=== PATIENT | male | born 1945 | race Caucasian/White ===

== ENCOUNTER 2018-08-06 05:30 | Inpatient (IN) ==
[2018-08-06] MEDS ORDERED: ROCEPHIN IM ONE (06:06)
[2018-08-06] MEDS ORDERED: DUONEB (A & A) INH STA (06:06)
[2018-08-06] MEDS ORDERED: NS 1,000 ML IV ONE (06:06)
[2018-08-06] MEDS ORDERED: XYLOCAINE-MPF 1% INJ ONE (06:06)
[2018-08-06] MEDS ORDERED: ZITHROMAX 500 MG/NS 500 MG/250 ML IVPB IV ONE (06:09)
[2018-08-06] MEDS ORDERED: ROCEPHIN 1 GM in NS 50 ML IV ONE (06:09)
--- NOTE | 2018-08-06 06:10 | PROVIDER DOCUMENTATION ---
HPI-Respiratory General - General Chief Complaint: Shortness of Breath Stated Complaint: sob Time Seen by Provider: 08/06/18 06:05 Allergies/Adverse Reactions: Patient Allergies Allergy/AdvReac Type Severity Reaction Status Date / Time No Known Allergies Allergy Verified 06/21/13 03:33 Home Medications: Home Medication List Medication Instructions Recorded Confirmed Last Taken Type Pantoprazole [Protonix] 40 mg PO DAILY@0700 #30 tablet 06/28/13 11/11/16 11/10/16 09:00 Rx Hydrocodone/APAP 10 mg/325 mg 1 - 2 each PO Q4H PRN PRN #0 tablet 11/12/16 Unknown Rx [Bascom-10] Lisinopril/Hydrochlorothiazide 1 ea PO DAILY 08/06/18 08/06/18 Unknown History [Lisinopril-Hctz 20-12.5 mg Tab] - History of Present Illness-Resp Nature of Presenting Problem: A 73 Y/O MALE PRESENTS WITH C/O SOB. PER THE PT HE STARTED HAVING COUGH A WEEK AGO AND SINCE IT HAS BEEN PROGRESSIVELY GOT WORSE. COUGH IS PRODUCTIVE OF GREEN PHLEGM. PT HAS BEEN HAVING FEVERS SINCE LAST THURSDAY. LAST NIGHT CAME HOME AND COULD NOT BREATHE, TRIED TO REST HOPING IT WOULD GET BETTER BUT DID NOT HELP. CALLED 911 THIS MORNING TO GET HELP. DENIES ANY CP OR N OR V OR D. SMOKES+. DEIES ANY SICK CONTACTS. HAS HX OF PNA ABOUT A YEAR AGO. Quality of Pain: reports: none Severity in ED: reports: moderate Onset/Duration: reports: last night Timing: reports: still present, getting worse Context: reports: recent URI. denies: recent foreign travel, recent chemotherapy Exposure: reports: unknown cause Cough Quality/Degree: reports: severe, productive cough, sputum Episode Frequency: rare episodes Current Respiratory Medication Therapy: Initiated none Modifying Factors: improves with: lying down, rest, sitting upright. worse with: coughing Associated Symptoms: reports: cough, fever/chills, flu-like symptoms, hyperventilating, shortness of breath, wheezing. denies: chest pain/soreness, earache, facial pain, headache, heart racing, lightheadedness, nasal congestion, nasal drainage, sinus pain, sore throat Similar Symptoms Previously?: Yes Recently seen or treated by another doctor?: No Review of Systems - Adult - REVIEW OF SYSTEMS - ADULT Constitutional: reports: see HPI, fever Eyes: reports: no symptoms reported Ears, Nose, Mouth & Throat: reports: see HPI Cardiovascular: reports: no symptoms reported Respiratory: reports: see HPI, cough Gastrointestinal: denies: no symptoms reported Genitourinary: denies: no symptoms reported Musculoskeletal: denies: no symptoms reported Integumentary: denies: no symptoms reported Neurological: denies: no symptoms reported Psychiatric: denies: no symptoms reported Endocrine: denies: no symptoms reported Hematologic/Lymphatic: denies: no symptoms reported Allergic/Immunologic: denies: no symptoms reported Past History - Adult - PAST MEDICAL HISTORY-ADULT Review of Records: reports: Old Records Reviewed, Nursing Assessment Review, Medications Reviewed, Social history reviewed & non-contributory. Major Childhood Illnesses: reports: denies history Cardiovascular: reports: HTN. denies: CHF Respiratory: reports: COPD, pneumonia Gastrointestinal: reports: denies history Obstetrical/Gynecological: reports: denies history Genitourinary: reports: denies history Musculoskeletal: reports: denies history Neurological: reports: denies history Endocrine/Immune: reports: denies history Other Conditions: reports: denies history - PRIOR SURGERIES/PROCEDURES Surgical/Procedure History: reports: reviewed, not pertinent - IMMUNIZATION STATUS Childhood Immunizations: UTD - FAMILY HISTORY Family History: CAD over 55 yo - SOCIAL HISTORY Smoking: cigarettes, greater than 1 pack/day Provider spent 3-5 mins advising pt. on dangers of tobacco.: Discussed manners to quit use, and f/u contacts for add'l counseling. Substance Use: none/never Alcohol Use Frequency: rarely Living Situation: family Physical Exam-General - PHYSICAL EXAM-ADULT Initial Vital Signs Reviewed: Yes - CONSTITUTIONAL General Appearance: moderate distress - EYES Eyes: PERRL/EOMI - HEAD, EARS, NOSE, MOUTH & THROAT HENMT: moist mucous membranes, normal ENT inspection, TMs normal - NECK Neck: supple - RESPIRATORY Respiratory: decreased breath sounds, accessory muscle use, rhonchi, wheezing - CARDIOVASCULAR Cardiovascular: regular rate, rhythm, no edema, no JVD, no murmur - GASTROINTESTINAL (ABDOMEN) Abdominal Exam: normal bowel sounds, non tender, soft - MUSCULOSKELETAL Back Exam: no CVA tenderness, no vertebral tenderness Extremity: no pedal edema - SKIN Integumentary: normal color, warm/dry - NEUROLOGIC Neurologic: grossly normal - PSYCHIATRIC Psych/Mental Status: oriented x 3, anxious - HEART Score HEART Score: History: Slightly Suspicious HEART Score: Age: > or = 65 Years HEART Score: Risk Factors for Atherosclerotic Disease: 1 or 2 Risk Factors HEART Score: Troponin: < or = Normal Limit Progress - PLAN OF CARE/RESULTS Progress/Plan/Lab Results: Vital Signs - 8 hr 08/06/18 05:35 08/06/18 05:36 08/06/18 05:40 Temperature 97.4 F L Pulse Rate 98 H 98 H Respiratory Rate 28 H 23 Blood Pressure 158/103 O2 Sat by Pulse Oximetry 96 97 97 08/06/18 05:50 08/06/18 06:00 08/06/18 06:03 Temperature Pulse Rate 95 H 96 H 98 H Respiratory Rate 23 26 H 25 H Blood Pressure 137/85 O2 Sat by Pulse Oximetry 98 98 99 08/06/18 06:10 08/06/18 06:20 08/06/18 06:33 Temperature Pulse Rate 101 H 102 H 104 H Respiratory Rate 32 H 28 H 31 H Blood Pressure 129/81 O2 Sat by Pulse Oximetry 98 95 96 Laboratory Results - last 24 hr 08/06/18 08/06/18 08/06/18 05:41 05:41 05:41 WBC Cancelled RBC Cancelled Hgb Cancelled Hct Cancelled MCV Cancelled MCH Cancelled MCHC Cancelled RDW Std Deviation Cancelled Plt Count Cancelled MPV Cancelled Immature Gran % (Auto) Cancelled Neut % (Auto) Cancelled Lymph % (Auto) Cancelled [place]range % (Auto) Cancelled Eos % (Auto) Cancelled Baso % (Auto) Cancelled Immature Gran # (Auto) Cancelled Neut # (Auto) Cancelled Lymph # (Auto) Cancelled [place] # (Auto) Cancelled Eos # (Auto) Cancelled Baso # (Auto) Cancelled Corrected WBC (Man) Cancelled Sodium 132 L Potassium 3.6 Chloride 87 L Carbon Dioxide 30 Anion Gap 15 BUN 13 Creatinine 0.7 Estimated GFR/1.73 m2 > 60 BUN/Creatinine Ratio 19 Glucose 144 H Calculated Osmolality 267 Calcium 9.5 Total Bilirubin 0.40 AST 21 ALT 13 Alkaline Phosphatase 124 H Creatine Kinase Creatine Kinase Index CK-MB (CK-2) Troponin T Emn-E-Aupqnzkbyeu Pept Total Protein 7.9 Albumin 3.5 Globulin 4.4 Albumin/Globulin Ratio 0.8 Plasma Lactate 1.5 08/06/18 08/06/18 08/06/18 05:41 05:41 05:41 WBC RBC Hgb Hct MCV MCH MCHC RDW Std Deviation Plt Count MPV Immature Gran % (Auto) Neut % (Auto) Lymph % (Auto) [place] % (Auto) Eos % (Auto) Baso % (Auto) Immature Gran # (Auto) Neut # (Auto) Lymph # (Auto) [place] # (Auto) Eos # (Auto) Baso # (Auto) Corrected WBC (Man) Sodium Potassium Chloride Carbon Dioxide Anion Gap BUN Creatinine Estimated GFR/1.73 m2 BUN/Creatinine Ratio Glucose Calculated Osmolality Calcium Total Bilirubin AST ALT Alkaline Phosphatase Creatine Kinase 236 H Creatine Kinase Index 5.1 H CK-MB (CK-2) 12.05 H Troponin T 0.015 Iqu-S-Kfyafcopaoj Pept 2963 H Total Protein Albumin Globulin Albumin/Globulin Ratio Plasma Lactate 08/06/18 08:30 WBC 20.95 H RBC 4.09 L Hgb 13.4 L Hct 40.0 L MCV 97.8 MCH 32.8 H MCHC 33.5 RDW Std Deviation 12.4 Plt Count 438 H MPV 8.4 Immature Gran % (Auto) 1.8 H Neut % (Auto) 81.4 H Lymph % (Auto) 4.4 L [place] % (Auto) 12.1 H Eos % (Auto) 0.0 Baso % (Auto) 0.3 Immature Gran # (Auto) 0.38 H Neut # (Auto) 17.03 H Lymph # (Auto) 0.93 L [place] # (Auto) 2.54 H Eos # (Auto) 0.01 Baso # (Auto) 0.06 Corrected WBC (Man) Sodium Potassium Chloride Carbon Dioxide Anion Gap BUN Creatinine Estimated GFR/1.73 m2 BUN/Creatinine Ratio Glucose Calculated Osmolality Calcium Total Bilirubin AST ALT Alkaline Phosphatase Creatine Kinase Creatine Kinase Index CK-MB (CK-2) Troponin T Mng-Z-Ffmuppvrxqi Pept Total Protein Albumin Globulin Albumin/Globulin Ratio Plasma Lactate Orders Category Date Time Status Saline Loc NOW Care 08/06/18 06:06 Active CHEST-PORTABLE [RAD] Stat Exams 08/06/18 06:06 Completed BLOOD CULTURE [BLDCUL] Stat Lab 08/06/18 05:46 Received CBC WITH DIFF [HEME] Stat Lab 08/06/18 08:30 Completed CK PROFILE [SP CHEM] Stat Lab 08/06/18 05:41 Completed COMPREHENSIVE METABOLIC PANEL [CHEM] Stat Lab 08/06/18 05:41 Completed INFLUENZA SCREEN A/B Stat Lab 08/06/18 08:58 Uncollected LACTATE, PLASMA [CHEM] Lab 08/06/18 05:41 Uncollected LACTATE, PLASMA [CHEM] Lab 08/06/18 08:30 Received LACTATE, PLASMA [CHEM] Lab 08/06/18 11:41 Uncollected LACTATE, PLASMA [CHEM] Stat Lab 08/06/18 05:41 Completed PRO B-NATRIURETIC PEPTIDE Stat Lab 08/06/18 05:41 Completed SPUTUM CULTURE WITH GRAM STAIN [RM] Routine Lab 08/06/18 05:33 Received TROPONIN T Stat Lab 08/06/18 05:41 Completed 0.9% Sodium Chloride Inj [Ns] 1,000 ml Med 08/06/18 06:06 Discontinued IV 999 mls/hr Albuterol 2.5MG/Ipratrop 0.5MG [Duoneb (A & A)] Med 08/06/18 09:00 Once 3 ml INH NOW ONE Albuterol 2.5MG/Ipratrop 0.5MG [Duoneb (A & A)] Med 08/06/18 06:06 Discontinued 3 ml INH NOW STA Azithromycin 500 mg/Ns [Zithromax 500 mg/Ns] Med 08/06/18 06:09 Discontinued 500 mg in 250 ml IV NOW CefTRIAXONE [Rocephin] Med 08/06/18 06:06 Discontinued 1 gm IM NOW ONE CefTRIAXONE [Rocephin] 1 gm Med 08/06/18 06:09 Discontinued 0.9% Sodium Chloride Inj [Ns] 50 ml IV NOW Hydrocodone/APAP 5 mg/325 mg [Bascom-5] Med 08/06/18 09:00 Once 2 each PO NOW ONE Lidocaine 1% Pf [Xylocaine-Mpf 1%] Med 08/06/18 06:06 Discontinued 5 ml INJ NOW ONE Methylprednisolone Sod Succ [Solu-Medrol] Med 08/06/18 09:00 Once 125 mg IV NOW ONE Aerosol Treatments Routine Oth 08/06/18 06:07 Completed Aerosol Treatments Routine Oth 08/06/18 09:00 Ordered Aerosol Treatments Stat Oth 08/06/18 06:07 Completed Aerosol Treatments Stat Oth 08/06/18 09:00 Ordered Pulse Oximetry Stat Oth 08/06/18 06:06 Completed EKG [EKG] Stat Ther 08/06/18 06:09 Ordered Result Diagrams: 08/06/18 08:30 08/06/18 05:41 - REASSESSMENT Reassessment #1 Time Reassessed: 09:01 Status: improving (Seen and examined by me. Case discussed with Dr. May at shift change. Patient meets criteria for sepsis. Has RUL PNE and also appears to have CHF by pro-BNP values with no prior diagnosis of CHF. Have give n Duonebs, solumedrol, rocephin/zithromax and lasix/asa. Patient requested Bascom for chronic pain) - XRAY 1 XRAY Study: Chest Impression: Abnormal ( CHEST-PORTABLE - 08/06/2018 INDICATION: cough COMPARISON: 02/04/2016 FINDINGS: There is a focal infiltrate or opacity in the right upper lobe. Heart size is normal. No pneumothorax or pleural effusion. IMPRESSION: Questionable infiltrate or opacity in the right upper lobe. Recommend treatment and a follow-up chest x-ray in one-2 weeks. Electronically signed by Wilmar Santana 08/06/2018 6:35 AM) - CONSULTS/PCP/HOSPITALIST Notification #1 *Consult/PCP/Hospitalist*: Mackenzie Time Discussed: 09:04 Consult Disposition: Will see in ED, Admit - CHANGE OF SHIFT REPORT (ED Provider) 1 Report Given and Care Transferred to:: DR SOW Time of Transfer: 07:00 Items Pending: Labs, Physician Consult/Arrival Departure - Departure Date of Disposition Decision: 08/06/18 Time of Disposition Decision: 09:04 DIAGNOSIS: COPD with exacerbation, Tobacco use disorder, Opioid dependence in controlled environment, Sepsis without acute organ dysfunction Right upper lobe pneumonia Qualifiers: Pneumonia type: due to unspecified organism Qualified Code(s): J18.1 - Lobar pneumonia, unspecified organism Congestive heart failure (CHF) Qualifiers: Heart failure type: unspecified Heart failure chronicity: acute on chronic Qualified Code(s): I50.9 - Heart failure, unspecified Disposition: ADMITTED INPATIENT 09 Certified Medical Emergency: Emergent Condition: Fair Referrals and Follow-Ups: Thomas Willis MD [Primary Care Provider] - - Critical Care Note This patient required my direct & personal management of CC.: Yes Total Time (mins): 40 Critical Care Statement: This patient required my direct personal management to treat or rule out processes, the absence of which, could potentiallly result in sudden, clinically significant life or limb threatening deterioration. Attestation - Physician/ TODD Attestation Patient care was provided by Advanced Practice Provider:: No The physician spent face to face time with patient:: Yes Advanced Practice Provider documentation review:: Supervising physician onsite and consulted in the evaluation and care of this patient. The physician did have a face to face encounter with the patient.
--- NOTE | 2018-08-06 06:38 | Diag Imaging Result Doc PS360 ---
CHEST-PORTABLE - 08/06/2018 INDICATION: cough COMPARISON: 02/04/2016 FINDINGS: There is a focal infiltrate or opacity in the right upper lobe. Heart size is normal. No pneumothorax or pleural effusion. IMPRESSION: Questionable infiltrate or opacity in the right upper lobe. Recommend treatment and a follow-up chest x-ray in one-2 weeks. Electronically signed by Wilmar Santana 08/06/2018 6:35 AM
[2018-08-06 07:46] LABS: ESTIMATED GFR > 60
[2018-08-06 07:48] LABS: AGAP 15; ALB/GLOB RATIO 0.8; ALBUMIN 3.5 g/dL (3.5-5.0); ALKALINE PHOSPHATASE 124 U/L (32-122); BUN 13 mg/dL (8-22); CALCIUM 9.5 mg/dL (8.8-10.2); CHLORIDE 87 mmol/L (98-107); COSMO 267; CREATININE 0.7 mg/dL (0.7-1.2); GLUCOSE 144 mg/dL (70-104); GOT 21 U/L (10-34); GPT 13 U/L (10-44); POTASSIUM 3.6 mmol/L (3.5-5.1); SODIUM 132 mmol/L (136-145); TCO2 30 mmol/L (25-35); TOTAL PROTEIN 7.9 g/dL (6.3-8.3)
[2018-08-06 08:20] LABS: CK INDEX 5.1 (0.0-2.5); CK-MB 12.05 ng/mL (0.0-5.0)
[2018-08-06 08:42] LABS: BASO# 0.06 X1000 (0.0-0.2); BASO% 0.3 % (0.0-0.8); EOS# 0.01 X1000 (0.0-0.7); HEMOGLOBIN 13.4 g/dL (14.0-18.0); IMM GRAN# 0.38 X1000 (0.0-0.04); IMM GRAN% 1.8 % (0.0-0.5); LYMPH# 0.93 X1000 (1.2-3.4); LYMPH% 4.4 % (20.5-51.1); MCH 32.8 PG (27-31); MCHC 33.5 g/dL (33-37); MCV 97.8 FL (81-99); MONO# 2.54 X1000 (0.11-0.59); MONO% 12.1 % (1.7-9.3); MPV 8.4 FL (7.4-10.4); NEUT# 17.03 X1000 (1.4-6.5); NEUT% 81.4 % (42.2-75.2); PLT 438 X1000 (130-400); RBC 4.09 XMIL (4.7-6.1); RDW 12.4 % (11.5-14.5); WBC 20.95 X1000 (4.8-10.8)
[2018-08-06] MEDS ORDERED: SOLU-MEDROL IV ONE (09:00)
[2018-08-06] MEDS ORDERED: NORCO-5 PO ONE (09:00)
[2018-08-06] MEDS ORDERED: DUONEB (A & A) INH ONE (09:00)
[2018-08-06] MEDS ORDERED: ASPIRIN PO ONE (09:11)
[2018-08-06] MEDS ORDERED: LASIX IV ONE (09:11)
--- NOTE | 2018-08-06 09:25 | EKG Report ---
Test Performed on : 08/06/2018 09:15:15 AM Test Reason : SOB Blood Pressure : / mmHG Vent. Rate : 097 BPM Atrial Rate : 097 BPM P-R Int : 138 ms QRS Dur : 080 ms QT Int : 380 ms P-R-T Axes : 078 068 054 degrees QTc Int : 482 ms Sinus rhythm. with premature atrial complexes. Prolonged QT Abnormal ECG When compared with ECG of 05-NOV-2016 11:03, premature atrial complexes. are now present Vent. rate has increased BY 32 BPM QT has lengthened Unconfirmed Result
[2018-08-06] MEDS ORDERED: TYLENOL PO PRN (10:00)
--- NOTE | 2018-08-06 10:08 | HISTORY AND PHYSICAL ---
HISTORY OF PRESENT ILLNESS: Mr. Levy has had shortness of breath now going on 3 or 4 days. He started actually a week ago, he was at work and got real hot and been coughing and just feels like he cannot get enough air. He denies any measured or subjective fever or chills. He had trouble laying flat on the bed last night, breathing better sitting up. No pleuritic pain, no chest pain, no squeezing or pressure pain. No pain to his jaw or shoulder arm. PAST MEDICAL HISTORY: 1. Hypertension. 2. Gastroesophageal reflux disease. 3. Hyperlipidemia. PAST SURGICAL HISTORY: He has had a right hip replacement. He has never been told that he had congestive heart failure. He has no history of history of heart attack to his knowledge. SOCIAL HISTORY: He smokes. He does drink about a 6 pack a week by his report. No illicit drugs reported. FAMILY HISTORY: He does not know anything significant in his family. REVIEW OF SYSTEMS: General: He does not report any weight gain or loss. No fever or chills. HEENT: No change in visual or hearing acuity. Respiratory: As above. He is having increased dyspnea, increased orthopnea and just does not feel like he is getting enough air with a dry cough. No pleuritic pain. No pressure type chest pain. No palpitations. Gastrointestinal/Genitourinary: No reports of change in bowel or bladder habits. Endocrinologic/Hematologic: No significant history. PHYSICAL EXAMINATION: VITAL SIGNS: Temperature 97.4 degrees, pulse 104, respirations 30, blood pressure 129/81. HEENT: Pupils are equal and round. LUNGS: Clear in all lung harvey. CARDIOVASCULAR: Regular rhythm and rate without murmur or S3. ABDOMEN: Soft. SKIN: Warm and dry. WEIGHT: 140 pounds. LUNGS: Clear, decreased breath sounds both bases, but they are clear in all lung harvey anterior and posterior. NECK: He does have distended neck veins. I cannot estimate his CVP, but he did have mild distention of neck veins. He is on supplemental O2 right now. Neck is supple. No thyromegaly. I do not appreciate any cervical or supraclavicular adenopathy. EXTREMITIES: No pedal edema. I do not see any sign of clubbing. LABORATORY DATA: White count 2950, hematocrit is 40, platelet count is 438,000. Sodium 132, potassium 3.6, chloride 87, BUN 13, creatinine 0.7, alkaline phos 124. CK is 236, troponin is 0.015. ProBNP is 2963, albumin is 3.5. IMAGING: Chest x-ray, questionable infiltrate opacity in the right upper lobe. Recommended treatment. Follow up with chest x-ray in 1 week. ASSESSMENT AND PLAN: 1. He appears to have community-acquired pneumonia, right upper lobe. We are going to treat him for pneumococcal. He is on ceftriaxone. We will also cover for atypical because of the protocol with azithromycin. We will put him on breathing treatments, DuoNeb q.4 hours while awake. We will put him on Advair 250/50 one puff twice a day. We will put him on guaifenesin extended release 1200 mg twice a day to try to thin out the mucoid secretions and we will give him normal saline right now at 85 mL an hour. 2. His proBNP is elevated. There is question on his left ventricular function. He has no history of congestive heart failure, but we will get an echocardiogram with Doppler simply to evaluate his left ventricular function. On exam, I do not appreciate valvular dysfunction, but we will look at that as well. 3. Hypertension. Watch blood pressure. 4. Gastroesophageal reflux disease. We will have him on a proton pump inhibitor. 5. Lastly is hypercholesterolemia. Note I suspect he has some underlying chronic obstructive pulmonary disease. He has a long history of smoking. We will deputy general counsel him to quit smoking and see if we can line up pulmonary function test at some point, but I think this is predominantly chronic obstructive pulmonary disease exacerbation. cc: Marc Grove MD
[2018-08-06] MEDS: DUONEB (A & A) INH SCH ×3 (11:17→23:45)
[2018-08-06] MEDS: ADVAIR 250/50 DISKUS INH SCH ×2 (11:20→19:45)
[2018-08-06] MEDS: NS 1,000 ML IV SCH (11:44)
[2018-08-06] MEDS: MUCINEX PO SCH ×2 (11:44→21:48)
--- NOTE | 2018-08-06 21:45 | ECHO REPORT ---
ORDER DATE: 08/06/2018 SUMMARY: 1. Very difficult study for interpretation due to very limited acoustic window quality. 2. Mild aortic valve sclerosis demonstrated with adequate aortic valve opening evident on 2- dimensional images. Doppler of aortic valve suboptimal. Mitral and tricuspid valves are without gross structural abnormality. Pulmonic valve is not seen. Aortic root is normal size. 3. Normal left ventricular dimensions suggested. Estimated left ventricular ejection fraction appears to be at least 60%. No obvious regional wall motion abnormalities can be appreciated. Left atrium is normal in size. Right atrium is normal in size. The right ventricle appears mildly enlarged. 4. No pericardial effusion. 5. Appearance of inferior vena cava suggests normal central venous pressure. cc: MD Mackenzie Ruano CRNP
[2018-08-07] MEDS: DUONEB (A & A) INH SCH ×7 (03:50→23:50)
[2018-08-07] MEDS: NORCO-10 PO PRN ×3 (06:02→23:10)
[2018-08-07] MEDS: PROTONIX PO SCH (06:03)
[2018-08-07] MEDS: ROCEPHIN 1 GM in NS 50 ML IV SCH (06:04)
[2018-08-07 08:00] LABS: BASO# 0.06 X1000 (0.0-0.2); BASO% 0.4 % (0.0-0.8); EOS# 0.01 X1000 (0.0-0.7); EOS% 0.1 % (0.0-10.0); HEMATOCRIT 39.6 % (42.0-52.0); HEMOGLOBIN 12.7 g/dL (14.0-18.0); IMM GRAN# 0.79 X1000 (0.0-0.04); IMM GRAN% 4.9 % (0.0-0.5); LYMPH# 1.35 X1000 (1.2-3.4); LYMPH% 8.4 % (20.5-51.1); MCH 32.3 PG (27-31); MCHC 32.1 g/dL (33-37); MCV 100.8 FL (81-99); MONO# 1.44 X1000 (0.11-0.59); MONO% 8.9 % (1.7-9.3); MPV 8.6 FL (7.4-10.4); NEUT# 12.51 X1000 (1.4-6.5); NEUT% 77.3 % (42.2-75.2); PLT 431 X1000 (130-400); RBC 3.93 XMIL (4.7-6.1); RDW 12.5 % (11.5-14.5); WBC 16.16 X1000 (4.8-10.8)
[2018-08-07 08:25] LABS: AGAP 11; BUN 11 mg/dL (8-22); CALCIUM 8.9 mg/dL (8.8-10.2); CHLORIDE 97 mmol/L (98-107); COSMO 278; CREATININE 0.5 mg/dL (0.7-1.2); ESTIMATED GFR > 60; GLUCOSE 111 mg/dL (70-104); SODIUM 139 mmol/L (136-145); TCO2 31 mmol/L (25-35)
[2018-08-07 08:39] LABS: BANDS 12 % (0-1); LYMPHS 16 % (21-51); MONO 6 % (1-9); SEGS 64 % (42-75)
[2018-08-07] MEDS: ADVAIR 250/50 DISKUS INH SCH ×2 (09:21→19:50)
[2018-08-07] MEDS: MUCINEX PO SCH ×2 (09:39→20:07)
[2018-08-07] MEDS: PRINZIDE 20/12.5MG PO SCH (09:40)
[2018-08-07] MEDS: NS 1,000 ML IV SCH ×2 (09:41)
[2018-08-07] MEDS: ZITHROMAX 500 MG/NS 500 MG/250 ML IVPB IV SCH (12:34)
--- NOTE | 2018-08-07 18:27 | PROGRESS NOTE ---
DATE: 08/07/2018 SUBJECTIVE: This is a 73-year-old admitted with pneumonia. He does feel better. He still pretty tired. He had an uneventful night. Remains afebrile. OBJECTIVE: Vital Signs: Temperature 97.9 degrees, pulse 89, respirations 18, blood pressure 136/74. HEENT: Pupils are equal and round. Lungs: Clear in all lung harvey. Cardiovascular: Regular rate without murmur or S3. Urine Output From Last Night: Urine output appeared to be 1200 mL. ASSESSMENT AND PLAN: 1. We did an echocardiogram. Normal left ventricular function, ejection fraction 60%, so he has a normal ventricle. He has some mild aortic sclerosis, but no significant stenosis. Valves are structurally normal. So, improving. Continue present antibiotics. I do not see any changes. 2. Hypertension. Blood pressure well controlled. 3. Looking at his labs, his white count did come down to 16,000. Will repeat another chest x-ray probably on Thursday morning. Check another CBC then as well. He is getting normal saline at 85 mL an hour. He is on azithromycin and ceftriaxone. cc: Marc Grove MD
[2018-08-08] MEDS: NS 1,000 ML IV SCH ×2 (02:00→16:05)
[2018-08-08] MEDS: DUONEB (A & A) INH SCH ×6 (03:50→23:45)
[2018-08-08] MEDS: PROTONIX PO SCH (06:25)
[2018-08-08] MEDS: ROCEPHIN 1 GM in NS 50 ML IV SCH (06:25)
[2018-08-08] MEDS: ADVAIR 250/50 DISKUS INH SCH ×2 (08:02→19:45)
[2018-08-08] MEDS: ZITHROMAX 500 MG/NS 500 MG/250 ML IVPB IV SCH (08:10)
[2018-08-08] MEDS: NORCO-10 PO PRN ×4 (08:10→20:23)
[2018-08-08] MEDS: PRINZIDE 20/12.5MG PO SCH (08:10)
[2018-08-08] MEDS: MUCINEX PO SCH ×2 (08:10→20:23)
--- NOTE | 2018-08-08 15:29 | PROGRESS NOTE ---
DATE: 08/08/2018 SUBJECTIVE: Mr. Levy is feeling better. He feels pretty weak. That is his main complaint. His breathing better and he has remained afebrile. OBJECTIVE: Vital Signs: Temperature 97.8 degrees, pulse 81 respirations 18, blood pressure 175/82. His blood pressure range has been between 126 and 175 over 65 to 87. HEENT: Pupils are equal. Neck: No distended neck veins. Lungs: Clear in all lung harvey. Cardiovascular: Regular rhythm and rate without murmur or S3. Abdomen: Soft. Skin: Warm and dry. LABORATORY STUDIES: No growth from his blood cultures. Sputum cultures unremarkable. Influenza screen was negative. ASSESSMENT/PLAN: 1. Community-acquired pneumonia, suspect pneumococcal. He is improving. May be able to go home tomorrow. I think he would benefit from at least another 24 hours of IV antibiotics. 2. Blood pressure looks good. So we will continue his ceftriaxone and azithromycin. The white count was 20,000 on arrival went down to 16. No another CBC tomorrow and basic metabolic profile and check another chest x-ray in the morning. cc: Marc Grove MD
[2018-08-09] MEDS: NS 1,000 ML IV SCH ×2 (03:36→18:47)
[2018-08-09] MEDS: NORCO-10 PO PRN ×5 (03:36→21:28)
[2018-08-09] MEDS: DUONEB (A & A) INH SCH ×6 (03:45→23:31)
[2018-08-09] MEDS: PROTONIX PO SCH (06:32)
[2018-08-09] MEDS: ROCEPHIN 1 GM in NS 50 ML IV SCH (06:32)
[2018-08-09 07:36] LABS: BASO# 0.37 X1000 (0.0-0.2); BASO% 2.4 % (0.0-0.8); EOS# 0.14 X1000 (0.0-0.7); EOS% 0.9 % (0.0-10.0); HEMATOCRIT 39.9 % (42.0-52.0); HEMOGLOBIN 12.7 g/dL (14.0-18.0); IMM GRAN# 1.64 X1000 (0.0-0.04); IMM GRAN% 10.8 % (0.0-0.5); LYMPH# 2.19 X1000 (1.2-3.4); LYMPH% 14.4 % (20.5-51.1); MCH 32.4 PG (27-31); MCHC 31.8 g/dL (33-37); MCV 101.8 FL (81-99); MONO# 1.48 X1000 (0.11-0.59); MONO% 9.7 % (1.7-9.3); MPV 8.2 FL (7.4-10.4); NEUT# 9.39 X1000 (1.4-6.5); NEUT% 61.8 % (42.2-75.2); PLT 408 X1000 (130-400); RBC 3.92 XMIL (4.7-6.1); RDW 12.9 % (11.5-14.5); WBC 15.21 X1000 (4.8-10.8)
[2018-08-09 08:00] LABS: BANDS 2 % (0-1); LYMPHS 18 % (21-51); SEGS 74 % (42-75)
[2018-08-09 08:03] LABS: AGAP 8; BUN 7 mg/dL (8-22); CALCIUM 8.5 mg/dL (8.8-10.2); CHLORIDE 94 mmol/L (98-107); COSMO 273; CREATININE 0.6 mg/dL (0.7-1.2); ESTIMATED GFR > 60; GLUCOSE 90 mg/dL (70-104); SODIUM 138 mmol/L (136-145); TCO2 36 mmol/L (25-35)
[2018-08-09] MEDS: ADVAIR 250/50 DISKUS INH SCH ×2 (08:31→19:50)
--- NOTE | 2018-08-09 09:13 | Diag Imaging Result Doc PS360 ---
EXAM: CHEST-2 VIEWS HISTORY: pneumonia TECHNIQUE: Chest two views COMPARISON: 08/06/2018 FINDINGS: The lungs are well expanded. The heart is not enlarged. The vessels are not distended. There are minimal interstitial markings in the mid lungs. Tiny pleural effusions. Scattered granuloma. IMPRESSION: No interval improvement. Electronically signed by Matias Collado 08/09/2018 9:10 AM
[2018-08-09] MEDS: PRINZIDE 20/12.5MG PO SCH (09:14)
[2018-08-09] MEDS: MUCINEX PO SCH ×2 (09:15→21:28)
[2018-08-09] MEDS: ZITHROMAX 500 MG/NS 500 MG/250 ML IVPB IV SCH (09:15)
--- NOTE | 2018-08-09 14:13 | PROGRESS NOTE ---
DATE: 08/09/2018 Mr. Levy says feels better, feels like he is breathing better, still on O2. We are continue trying to wean him down on his O2 see if we can get him off of the oxygen. EXAM: Today remains afebrile, temperature 97.9 degrees, pulse 64, respirations 19, blood pressure 133/72. Pupils are equal and round. No distended neck veins.Lungs: Clear in all lung harvey. Cardiovascular: Regular rhythm and rate without murmur or S3. His urine output was good by report. I do not have any thing measured there. His chest x-ray from this morning, no interval improvement. The lungs are well expanded. Heart was not enlarged, vessels are not distended. There is minimal interstitial markings in the mid lungs, tiny pleural effusions, scattered granuloma so his initial x-ray on 08/06, questionable infiltrate opacity the right upper lobe so we will continue his antibiotics, see if we can wean him off oxygen. He may need home O2 so we will look at that. He had an echocardiogram, is a normal left ventricle, normal left ventricular ejection fraction of 60%. No pericardial effusion. He has mild aortic valve sclerosis demonstrating adequate aortic opening and no sign of stenosis. Mitral and tricuspid valves were grossly normal. So I think he is getting close to going home but the question is does he need oxygen and he does have underlying chronic obstructive pulmonary disease. We have counseled him on the importance of stopping smoking. cc: Marc Grove MD
[2018-08-10] MEDS: DUONEB (A & A) INH SCH ×6 (03:45→23:17)
[2018-08-10] MEDS: NS 1,000 ML IV SCH ×2 (06:17→16:53)
[2018-08-10] MEDS: ROCEPHIN 1 GM in NS 50 ML IV SCH (06:19)
[2018-08-10] MEDS: PROTONIX PO SCH (06:20)
[2018-08-10] MEDS: ADVAIR 250/50 DISKUS INH SCH ×2 (07:54→19:48)
[2018-08-10] MEDS: MUCINEX PO SCH ×2 (09:02→22:08)
[2018-08-10] MEDS: PRINZIDE 20/12.5MG PO SCH (09:02)
[2018-08-10] MEDS: ZITHROMAX 500 MG/NS 500 MG/250 ML IVPB IV SCH (09:03)
[2018-08-10] MEDS: NORCO-10 PO PRN ×3 (12:28→22:08)
[2018-08-10 15:58] LABS: BLOOD TYPE ARTERIAL; HCO3-(ACT) 35.5 mmoll (20.0-26.0); PCO2(98.6) 49 mmHg (35-45); SAMPLE BLOOD; pH(98.6) 7.51 (7.35-7.45)
[2018-08-10 15:59] LABS: ALLEN TEST YES; METHB 1.6 % (0.0-1.5); O2(CT) 16.2 mL/dL (15.0-23.0); SAO2 87.9 % (95.0-100.0); THB 13.6 g/dL (11.5-17.4)
[2018-08-10 16:00] LABS: MODALITY CANNULA
[2018-08-10 16:05] LABS: O2HB 84.8 % (95.0-99.0); PO2(98.6) 49 mmHg (60-100)
--- NOTE | 2018-08-10 16:40 | PROGRESS NOTE ---
DATE: 08/10/2018 SUBJECTIVE: This patient is feeling a little bit better but he is still short of breath. He cannot complete a sentence without stopping. He is wheezing mostly at the bases and he has some rhonchi bilaterally, some crepitus as well. He does have COPD. He has a history of tobacco use. As per the patient he has been smoking at least 2 packs a day and he has been smoking for 45 years. OBJECTIVE: Vital Signs: Temperature 98.7 degrees, pulse 87, respiratory rate 20, blood pressure 146/66, oxygen saturation 94% on 2 L of nasal cannula. HEENT: Head normocephalic. No trauma. PERRLA. Neck: Supple. No JVD. No masses. Central trachea. Chest: Decreased breath sounds globally with prolonged expiratory phase and expiratory wheezing bilaterally, mostly at the bases, diffuse, some rhonchi and crepitus scattered bilaterally as well. Abdomen: Soft, nontender, nondistended. No hepatosplenomegaly. Extremities: No edema, no clubbing, no cyanosis. Neurological: The patient is alert and oriented x3. No focal deficits. LABORATORY: WBC 15.2, hemoglobin 12.7, hematocrit 39.9, platelets 408,000. Sodium 138, potassium 4, chloride 94, bicarbonate 36, BUN 7, creatinine 0.6, glucose 90, calcium 8.5. ASSESSMENT AND PLAN: 1. Acute on chronic hypoxemic respiratory failure. I am getting a an arterial blood gases to rule out hypercarbic respiratory failure as well. I will continue with oxygen supplementation. It looks like this patient has been on oxygen before at home. We will continue with the same management for now since he is getting better slowly. 2. Right upper lobe pneumonia, continue with antibiotics. White blood count trending down. 3. Chronic obstructive pulmonary disease exacerbation, mostly at the bases. Since he is getting better with breathing treatment and antibiotics plus oxygen I will continue with the same management. I will avoid for now steroids due to his pneumonia, but I will monitor this patient closely. 4. Hypertension, continue with same management. 5. Gastroesophageal reflux disease. Continue with proton pump inhibitors. 6. Mild elevation of the CK upon admission with possible mild rhabdomyolysis, aware. He has been placed on intravenous fluids. I will check a new CK level in the morning. This patient is doing a little bit better. He is still complaining of shortness of breath. He is still wheezing. His is at the bedside and she agree with me, I do not think today he is completely good to go home. I think he is going to take 1 or 2 more days, and probably he will be discharged home with oxygen. We will do a home O2 evaluation before discharge. WBC trending down and he is feeling a bit better so we will continue with same management. cc: Ramón Taylor MD
[2018-08-11] MEDS: DUONEB (A & A) INH SCH ×3 (03:22→11:39)
[2018-08-11] MEDS: NORCO-10 PO PRN ×2 (03:44→08:43)
[2018-08-11] MEDS: NS 1,000 ML IV SCH (03:46)
[2018-08-11 04:46] LABS: ALLEN TEST YES; BE 11.7 mmoll (-3.0-3.0); BLOOD TYPE ARTERIAL; HCO3-(ACT) 33.9 mmoll (20.0-26.0); METHB 0.7 % (0.0-1.5); O2(CT) 18.3 mL/dL (15.0-23.0); O2HB 93.6 % (95.0-99.0); PO2(98.6) 72 mmHg (60-100); SAMPLE BLOOD; SAO2 96.5 % (95.0-100.0); THB 13.9 g/dL (11.5-17.4); pH(98.6) 7.43 (7.35-7.45)
[2018-08-11 04:53] LABS: MODALITY CANNULA; PCO2(98.6) 58 mmHg (35-45)
[2018-08-11] MEDS: ROCEPHIN 1 GM in NS 50 ML IV SCH (05:01)
[2018-08-11] MEDS: PROTONIX PO SCH (06:13)
[2018-08-11] MEDS: ADVAIR 250/50 DISKUS INH SCH (07:46)
[2018-08-11 08:09] LABS: BASO# 0.06 X1000 (0.0-0.2); BASO% 0.6 % (0.0-0.8); EOS# 0.21 X1000 (0.0-0.7); HEMATOCRIT 38.2 % (42.0-52.0); HEMOGLOBIN 12.4 g/dL (14.0-18.0); IMM GRAN% 7.4 % (0.0-0.5); LYMPH# 1.53 X1000 (1.2-3.4); LYMPH% 14.2 % (20.5-51.1); MCH 32.5 PG (27-31); MCHC 32.5 g/dL (33-37); MONO# 1.01 X1000 (0.11-0.59); MONO% 9.4 % (1.7-9.3); MPV 8.6 FL (7.4-10.4); NEUT# 7.14 X1000 (1.4-6.5); NEUT% 66.4 % (42.2-75.2); PLT 394 X1000 (130-400); RBC 3.82 XMIL (4.7-6.1); RDW 12.8 % (11.5-14.5); WBC 10.75 X1000 (4.8-10.8)
--- NOTE | 2018-08-11 08:09 | Diag Imaging Result Doc PS360 ---
EXAM: CHEST-PORTABLE INDICATION: dyspnea TECHNIQUE: 2 views COMPARISON: 08/09/2018 FINDINGS: Pulmonary vasculature and interstitial markings have increased slightly in prominence during the interval suggesting slight worsening of pulmonary venous congestion and interstitial edema. Otherwise, no new consolidation is identified. Cardiac silhouette is stable. IMPRESSION: Slight worsening of pulmonary venous congestion and interstitial edema. Electronically signed by Jeff Buck 08/11/2018 8:07 AM
[2018-08-11 08:18] LABS: AGAP 10; ALB/GLOB RATIO 0.8; ALBUMIN 2.7 g/dL (3.5-5.0); ALKALINE PHOSPHATASE 67 U/L (32-122); BUN 5 mg/dL (8-22); CALCIUM 8.2 mg/dL (8.8-10.2); CHLORIDE 95 mmol/L (98-107); CK PROFILE 57 U/L (24-204); COSMO 275; CREATININE 0.5 mg/dL (0.7-1.2); ESTIMATED GFR > 60; GLUCOSE 173 mg/dL (70-104); GOT 15 U/L (10-34); GPT 12 U/L (10-44); POTASSIUM 2.7 mmol/L (3.5-5.1); SODIUM 137 mmol/L (136-145); TCO2 32 mmol/L (25-35); TOTAL BILIRUBIN 0.17 mg/dL (0.20-1.00); TOTAL PROTEIN 6.2 g/dL (6.3-8.3)
[2018-08-11 08:29] LABS: BANDS 4 % (0-1); EOS 2 % (1-10); LYMPHS 12 % (21-51); MONO 6 % (1-9); SEGS 60 % (42-75)
[2018-08-11 08:38] LABS: IRON SATURATION 19 %; TIBC 166 ug/dL; TOTAL IRON 31 ug/dL (53-167); UNBOUND IRON 135 ug/dL (112-346)
[2018-08-11] MEDS: PRINZIDE 20/12.5MG PO SCH (08:43)
[2018-08-11] MEDS: ZITHROMAX 500 MG/NS 500 MG/250 ML IVPB IV SCH (08:43)
[2018-08-11] MEDS: MUCINEX PO SCH (08:43)
[2018-08-11 08:54] LABS: FERRITIN 442 ng/mL (30-400)
[2018-08-11] MEDS ORDERED: KLOR-CON PO SCH (09:45)
[2018-08-11 11:57] VITALS: BP 147/86
--- NOTE | 2018-08-11 22:15 | DISCHARGE SUMMARY ---
ADMISSION DATE: 08/06/2018 DISCHARGE DATE: 08/11/2018 DIAGNOSES: 1. Acute on chronic hypoxemic respiratory failure, resolved. 2. Right upper lobe pneumonia, improving. 3. Chronic obstructive pulmonary disease exacerbation, resolved. 4. Hypertension. 5. Gastroesophageal reflux disease. 6. Mild elevation of creatine phosphokinase on admission, resolved. DIAGNOSTICS: 1. 08/06/2018 - Chest x-ray revealed questionable infiltrate or opacity in the right upper lobe. Recommend treatment and a followup chest x-ray in 1 to 2 weeks. 2. 08/09/2017 - Chest x-ray revealed no interval improvement. 3. 08/11/2018 - Chest x-ray revealed questionable infiltrate or opacity in the right upper lobe. 4. Echocardiogram revealed estimated left ventricular ejection fraction at least 60% with no obvious regional wall motion abnormalities. Left atrium is normal in size. Right atrium is normal in size. Right ventricle appears mildly enlarged. No pericardial effusion. Appearance of inferior vena cava suggests normal central venous pressure. MICROBIOLOGY: 1. Sputum culture revealed normal veronica. 2. Blood cultures x2 revealed no growth after 48 hours. 3. Influenza A and B both negative. HOSPITAL COURSE: Mr. Levy presented to the emergency room complaining of shortness of breath. He was found to have community-acquired right upper lobe pneumonia, for which he initially received Rocephin and azithromycin and has since been transitioned over to Omnicef for discharge. He was found to be in COPD exacerbation, for which she was treated with steroids to taper along with DuoNebs. Thankfully, this has resolved. He did have a mild elevation of his CPK on admission, having a total CK of 236. Repeat CPK on the was 57. He did qualify for home O2, which a portable tank was delivered to his room, and thankfully, he is ready for discharge. DISCHARGE PHYSICAL EXAMINATION: Vital signs: Blood pressure is 157/75, heart rate 71, respirations are 20, temperature is 97.8 degrees oral, with O2 saturation 97% to 100% on 3 L nasal cannula. Cardiovascular: Regular rate and rhythm. S1, S2 appreciated. He has no murmurs. Calves are nontender bilateral to palpation. Peripheral pulses are palpable x4 extremities. Pulmonary: Breath sounds, he has some slight expiratory wheezes. Chest rises and falls symmetrically with respiration. Chest wall: Nontender to palpation. Gastrointestinal: Abdomen is soft, nontender, nondistended, with bowel sounds in all 4 quadrants. Neurologic: He is alert and oriented x3. DISCHARGE MEDICATIONS: 1. Lisinopril/hydrochlorothiazide 20/12.5 one p.o. daily. 2. Advair 250/150 one puff b.i.d. 3. Medrol Dosepak take as directed. 4. Mucinex 600 mg p.o. b.i.d. 5. [place] 10 one p.o. b.i.d. 6. Omnicef 300 mg p.o. b.i.d. x4 days. 7. Protonix 40 mg p.o. daily. 8. Ventolin inhaler 2 puffs q.6 hours p.r.n. wheezing. FOLLOWUP: 1. He is to follow up with Jacquelin Orellana in the next 1 to 2 weeks, sooner if needed. He needs to call to schedule an appointment. 2. Dr. Romo in 1 to 2 weeks. He needs to call to schedule an appointment. 3. He has been instructed to call to be seen sooner or return to the ER for any syncope, dizziness, chest pain, palpitations, any increasing shortness of breath, temperature greater than 101 degrees, any nausea, vomiting, diarrhea, constipation, black or bloody vomitus or stools, any hematuria, dysuria, frequency, or urgency. 4. He is being discharged home in stable condition with family members. TIME SPENT: This was a greater than 30-minute discharge. Dictated by SAMEERA Mckeon for Ramón Taylor MD cc: SAMEERA Mckeon MD
== END 2018-08-11 14:51 | disposition home health service (06) | DRG 871 ==
LOC: ED 05:30 → 3N 11:03 → SUATTDRO 11:03
PROVIDERS: ATTEND Internal Medicine
CPT/HCPCS: 71010; 71020; 71045; 71046; 80048; 80053; 82550; 82553; 82607; 82728; 82746; 82805; 83540; 83550; 83605; 83880; 84484; 85025; 87040; 87070; 87205; 87275; 87276; 87804; 93005; 93306; 93308; 94640; 94761; 96365; 96366; 96367; 96375; 99285; A9270; J0456; J0696; J2930; J7030

== ENCOUNTER 2019-06-29 08:47 | Inpatient (IN) ==
--- NOTE | 2019-06-29 09:43 | Diag Imaging Result Doc PS360 ---
EXAM: CHEST-1 VIEW HISTORY: sob, cough TECHNIQUE: Single view COMPARISON: 08/11/2018 FINDINGS: The lungs are well expanded. The heart is not enlarged. The vessels are not distended. There are no infiltrates. No effusion identified. Scattered granuloma. IMPRESSION: No pneumonia Electronically signed by Matias Collado 06/29/2019 9:40 AM
[2019-06-29 09:48] LABS: BASO# 0.06 X1000 (0.0-0.2); BASO% 0.6 % (0.0-0.8); EOS# 0.49 X1000 (0.0-0.7); EOS% 4.7 % (0.0-10.0); HEMATOCRIT 52.8 % (42.0-52.0); HEMOGLOBIN 17.2 g/dL (14.0-18.0); IMM GRAN# 0.04 X1000 (0.0-0.04); IMM GRAN% 0.4 % (0.0-0.5); LYMPH# 1.57 X1000 (1.2-3.4); MCH 32.6 PG (27-31); MCHC 32.6 g/dL (33-37); MONO% 7.6 % (1.7-9.3); MPV 8.5 FL (7.4-10.4); NEUT# 7.53 X1000 (1.4-6.5); NEUT% 71.7 % (42.2-75.2); PLT 401 X1000 (130-400); RBC 5.28 XMIL (4.7-6.1); RDW 12.7 % (11.5-14.5); WBC 10.49 X1000 (4.8-10.8)
[2019-06-29 09:59] LABS: AGAP 9; ALBUMIN 4.7 g/dL (3.5-5.0); ALKALINE PHOSPHATASE 78 U/L (32-122); BUN 5 mg/dL (8-22); CALCIUM 9.4 mg/dL (8.8-10.2); CHLORIDE 94 mmol/L (98-107); COSMO 271; CREATININE 0.6 mg/dL (0.7-1.2); ESTIMATED GFR > 60; GLUCOSE 91 mg/dL (70-104); GOT 19 U/L (10-34); GPT 9 U/L (10-44); POTASSIUM 4.8 mmol/L (3.5-5.1); SODIUM 137 mmol/L (136-145); TCO2 34 mmol/L (25-35); TOTAL PROTEIN 7.9 g/dL (6.3-8.3)
[2019-06-29 10:10] LABS: INFLUENZA A NEGATIVE (NEGATIVE); INFLUENZA B NEGATIVE (NEGATIVE)
[2019-06-29] MEDS ORDERED: SOLU-MEDROL IV ONE (11:31)
--- NOTE | 2019-06-29 11:33 | PROVIDER DOCUMENTATION ---
This chart was entered by Kathi Silva Scribe, acting as scribe for Edison Oh MD. HPI-General Adult - General Chief Complaint: Cough Stated Complaint: cough Time Seen by Provider: 06/29/19 09:13 Source: patient Allergies/Adverse Reactions: Patient Allergies Allergy/AdvReac Type Severity Reaction Status Date / Time No Known Allergies Allergy Verified 06/29/19 09:13 Home Medications: Home Medication List Medication Instructions Recorded Confirmed Last Taken Type Hydrocodone/APAP 10 mg/325 mg 06/29/19 06/29/19 Unknown History [[place]-10] Lisinopril/Hydrochlorothiazide 06/29/19 Unknown History [Lisinopril-Hctz 20-12.5 mg Tab] Pantoprazole [Protonix] 06/29/19 Unknown History - History of Present Illness -Gen Adult Nature of Presenting Problems: 74yom presents to ED by EMS cc productive yellow cough, SOB, fatigue, tightness in abdomen but no pain and trouble being able to taste well for 5 days. 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 He denies N/V/D/F/C. Ems report pt o2 was 89% upon arrival. He is a smoker. He is in mild respiratory distress upon exam. Location of Pain/Injury: reports: generalized Quality of Pain: reports: tightness Severity: reports: mild, moderate Onset/Duration: reports: 5 days ago Timing: reports: still present, getting worse Context/Activities at Onset: reports: light activity Modifying Factors: worse with: coughing Associated Symptoms: reports: cough, fatigue, shortness of breath. denies: diarrhea, EENT symptoms, fever/chills, sinus congestion/drainage, nausea, vomiting Similar Symptoms Previously?: No Recently seen or treated by another doctor?: No Review of Systems - Adult - REVIEW OF SYSTEMS - ADULT Constitutional: reports: see real FISCHER. denies: chills, fever Eyes: reports: no symptoms reported Ears, Nose, Mouth & Throat: reports: see HPI, other (can't taste well). denies: ear pain, throat pain Cardiovascular: reports: no symptoms reported Respiratory: reports: see HPI, cough, shortness of breath. denies: wheezing Gastrointestinal: reports: see HPI. denies: abdominal pain (tightness only), diarrhea, nausea, vomiting Genitourinary: reports: no symptoms reported Musculoskeletal: reports: no symptoms reported Integumentary: reports: no symptoms reported Neurological: reports: no symptoms reported Psychiatric: reports: no symptoms reported Endocrine: reports: no symptoms reported Hematologic/Lymphatic: reports: no symptoms reported Allergic/Immunologic: reports: no symptoms reported All Other Systems: Reviewed and Negative Past History - Adult - PAST MEDICAL HISTORY-ADULT Review of Records: reports: Nursing Assessment Review, Medications Reviewed, Social history reviewed & non-contributory. Major Childhood Illnesses: reports: denies history Cardiovascular: reports: HTN. denies: CHF Respiratory: reports: COPD, pneumonia Gastrointestinal: reports: denies history Obstetrical/Gynecological: reports: denies history Genitourinary: reports: denies history Musculoskeletal: reports: denies history Neurological: reports: denies history Endocrine/Immune: reports: denies history Other Conditions: reports: denies history - PRIOR SURGERIES/PROCEDURES Surgical/Procedure History: reports: reviewed, not pertinent - IMMUNIZATION STATUS Childhood Immunizations: UTD Flu Vaccine: See Nurse Assessment - FAMILY HISTORY Family History: CAD over 55 yo - SOCIAL HISTORY Smoking: cigarettes, greater than 1 pack/day Provider spent 3-5 mins advising pt. on dangers of tobacco.: Discussed manners to quit use, and f/u contacts for add'l counseling. Physical Exam-General - PHYSICAL EXAM-ADULT Initial Vital Signs Reviewed: Yes - CONSTITUTIONAL General Appearance: alert, mild distress. negative: anxious, combative - EYES Eyes: PERRL/EOMI, pink conjunctivae. negative: photophobia - HEAD, EARS, NOSE, MOUTH & THROAT HENMT: normocephalic/atraumatic, moist mucous membranes. negative: angioedema - NECK Neck: non-tender, full range of motion, supple, normal inspection. negative: lymphadenopathy - RESPIRATORY Respiratory: chest non-tender, normal breath sounds, respiratory distress (mild) , rhonchi (mild, bilateral), wheezing (bilateral). negative: lungs clear, crackles, rales, stridor - CARDIOVASCULAR Cardiovascular: normal peripheral pulses, regular rate, rhythm. negative: bradycardia, tachycardia - GASTROINTESTINAL (ABDOMEN) Abdominal Exam: normal bowel sounds, non tender, soft. negative: guarding, rebound - LYMPHATIC Lymphatic: no adenopathy. negative: enlargement - MUSCULOSKELETAL Back Exam: normal inspection, no CVA tenderness, no vertebral tenderness Extremity: normal range of motion, non-tender, normal gait, normal inspection, no pedal edema, no calf tenderness, normal capillary refill. negative: deformity, erythema, swelling - SKIN Integumentary: normal color, normal turgor, warm/dry. negative: diaphoresis, jaundice, rash - NEUROLOGIC Neurologic: artist's manager II-XII nml as tested, grossly normal - PSYCHIATRIC Psych/Mental Status: normal mood/affect, oriented x 3. negative: anxious Progress - PLAN OF CARE/RESULTS Progress/Plan/Lab Results: Vital Signs - 8 hr 06/29/19 08:54 06/29/19 09:13 Temperature 98.2 F Pulse Rate 83 Respiratory Rate 18 Blood Pressure 146/91 O2 Sat by Pulse Oximetry 100 EMS noted that pt had sats in the 80's on RA that improved with 2L by NC. Pt has Albuterol inhaler with him in room that he is using in the ER. Result Diagrams: 06/29/19 08:59 06/29/19 08:59 - XRAY 1 XRAY: Bilateral XRAY Study: Chest Impression: See EMR Report (IMPRESSION: No pneumonia Electronically signed by Matias Collado 06/29/2019 9:40 AM) - CONSULTS/PCP/HOSPITALIST Notification #1 *Consult/PCP/Hospitalist*: Dr. Willis Time Discussed: 11:14 Consult Disposition: Will see in ED, Admit Departure - Departure Date of Disposition Decision: 06/29/19 Time of Disposition Decision: 11:14 DIAGNOSIS: COPD with exacerbation, Viral syndrome, Hypoxia Disposition: ADMITTED INPATIENT 09 Certified Medical Emergency: Emergent Condition: Fair Referrals and Follow-Ups: None,PCP [Primary Care Provider] - Discharge Education: Steps to Quit Smoking, [id number] - Critical Care Note This patient required my direct & personal management of CC.: Yes Total Time (mins): 35 Critical Care Statement: This patient required my direct personal management to treat or rule out processes, the absence of which, could potentiallly result in sudden, clinically significant life or limb threatening deterioration. Attestation - Physician/ TODD Attestation Patient care was provided by Advanced Practice Provider:: No The physician spent face to face time with patient:: Yes Advanced Practice Provider documentation review:: Supervising physician onsite and consulted in the evaluation and care of this patient. The physician did have a face to face encounter with the patient. This chart was documented by the indicated scribe, (Kathi Silva, Jaibaylin) and accurately reflects the services I performed and decisions made by me, Edison Oh MD, as attested by the provider's signature.
[2019-06-29] MEDS ORDERED: ZOFRAN IV PRN (12:50)
[2019-06-29] MEDS ORDERED: DUONEB (A & A) INH PRN (12:50)
[2019-06-29] MEDS ORDERED: TYLENOL PO PRN (12:50)
[2019-06-29] MEDS ORDERED: VENTOLIN HFA INH PRN (13:13)
[2019-06-29] MEDS ORDERED: SOLU-MEDROL ONE (13:24)
[2019-06-29] MEDS: ROCEPHIN 1 GM in NS 50 ML IV SCH (13:48)
[2019-06-29] MEDS: VENTOLIN HFA INH PRN ×2 (15:20→20:21)
[2019-06-29] MEDS ORDERED: DUONEB (A & A) INH SCH (15:30)
[2019-06-29] MEDS: ZITHROMAX 500 MG/NS 500 MG/250 ML IVPB IV SCH (15:54)
[2019-06-29] MEDS: NORCO-10 PO SCH (20:27)
[2019-06-29] MEDS: SOLU-MEDROL IV SCH (20:27)
[2019-06-30] MEDS: SOLU-MEDROL IV SCH ×3 (04:42→21:18)
[2019-06-30 05:50] LABS: HEMOGLOBIN 15.9 g/dL (14.0-18.0); MCH 32.1 PG (27-31); MCHC 32.4 g/dL (33-37); MPV 8.5 FL (7.4-10.4); RBC 4.95 XMIL (4.7-6.1); RDW 12.5 % (11.5-14.5); WBC 7.51 X1000 (4.8-10.8)
[2019-06-30 06:11] LABS: AGAP 12; ALBUMIN 4.4 g/dL (3.5-5.0); ALKALINE PHOSPHATASE 70 U/L (32-122); BUN 10 mg/dL (8-22); CALCIUM 9.4 mg/dL (8.8-10.2); CHLORIDE 93 mmol/L (98-107); COSMO 274; CREATININE 0.6 mg/dL (0.7-1.2); ESTIMATED GFR > 60; GLUCOSE 125 mg/dL (70-104); GOT 13 U/L (10-34); GPT 7 U/L (10-44); POTASSIUM 4.6 mmol/L (3.5-5.1); SODIUM 137 mmol/L (136-145); TCO2 32 mmol/L (25-35)
[2019-06-30] MEDS: VENTOLIN HFA INH PRN ×3 (08:02→23:31)
[2019-06-30] MEDS: NORCO-10 PO SCH ×2 (09:36→21:18)
[2019-06-30] MEDS: PROTONIX PO SCH (09:37)
[2019-06-30] MEDS: ROCEPHIN 1 GM in NS 50 ML IV SCH (13:02)
[2019-06-30] MEDS: ZITHROMAX 500 MG/NS 500 MG/250 ML IVPB IV SCH (13:36)
[2019-06-30] MEDS: NORCO-10 PO PRN (18:03)
--- NOTE | 2019-06-30 22:57 | PROGRESS NOTE ---
DATE: 06/30/2019 SUBJECTIVE: Patient notes he feels tremendously better this morning. Coughing is improved. Denies any wheezing. Denies any true shortness of breath. He is still on oxygen. PHYSICAL EXAMINATION: Vital Signs: Temperature 97.6 degrees, pulse 80, respiratory 18, BP 132/71. General: Patient is pleasant. No distress. He is lying in the bed, currently still on oxygen. HEENT: Normocephalic. Neck: Supple. Cardiovascular: Regular rate. Chest: Clear, nonlabored. No wheezing currently. Good air movement. Abdomen: Soft, nondistended. Extremities: Moves all extremities. ASSESSMENT: 1. Chronic obstructive pulmonary disease with exacerbation. 2. Hypertension. 3. Chronic pain. 4. Acute hypoxic respiratory failure. 5. Patient is under investigation for Coronavirus 19. Test is still pending. PLAN: We are going to continue patient on respiratory and droplet isolation. We will continue steroids although we will decrease the dose. Continue oxygen although attempt to wean. We will follow his blood pressures. We have not restarted his medicine yet because his blood pressures have still been normal without them. Further orders as needed. cc: Thomas Willis MD
--- NOTE | 2019-07-01 02:50 | HISTORY AND PHYSICAL ---
CHIEF COMPLAINT: Cough. HISTORY OF PRESENT ILLNESS: Patient is a 74-year-old male who presented to the emergency department with productive yellow cough, shortness of breath, fatigue, tightness in his chest and his abdomen. Denies any true chest pain. Denies any trouble breathing. States he has had a loss of taste for the past couple of days. 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 Has been to [place], [place], [place], [place]. States he has been driving long hours and he feels overly fatigued. ALLERGIES: No known drug allergies. MEDICATIONS: Lisinopril, Protonix, [place]. REVIEW OF SYSTEMS: As noted above. States he has been tired, fatigued. Having increased cough, congestion, increased work of breathing, shortness of breath. Denies any true fevers, chills. Denies sinus congestion, drainage. Denies nausea, vomiting. Denies any diarrhea, constipation, melena, hematochezia. Denies GI or symptoms otherwise. Denies skin rashes. PAST MEDICAL HISTORY: Significant for hypertension, COPD, history of recurrent pneumonia. FAMILY HISTORY: Noncontributory although he does have a history of coronary artery disease over the age of 55. SOCIAL HISTORY: Patient does smoke greater than a pack a day for many years. Denies illicit substance use or alcohol. PHYSICAL EXAMINATION: VITAL SIGNS: Temperature 98.2 degrees, pulse 83, respiratory 18, BP 146/91, saturation 100% on 2 L. GENERAL: Patient is awake, pleasant. He is in minimal respiratory distress currently. HEENT: Normocephalic. NECK: Supple. CARDIOVASCULAR: Regular rate. CHEST: Mild respiratory distress. Mild to moderate wheezing. Decreased air movement. ABDOMEN: Soft, nondistended. EXTREMITIES: Moves all extremities. NEUROLOGIC: No changes. ASSESSMENT: 1. Chronic obstructive pulmonary disease with exacerbation. 2. Viral syndrome. The patient is a person of interest for COVID-19, test is currently pending. 3. Acute hypoxic respiratory failure. PLAN: We are going to place patient in the hospital. Oxygen, steroids, breathing treatments and we will follow. cc: Thomas Willis MD
[2019-07-01] MEDS: SOLU-MEDROL IV SCH ×3 (04:37→20:10)
[2019-07-01] MEDS: PROTONIX PO SCH (06:21)
[2019-07-01] MEDS: VENTOLIN HFA INH PRN ×4 (08:10→19:56)
[2019-07-01] MEDS: NORCO-10 PO SCH ×2 (09:53→20:10)
[2019-07-01] MEDS: ROCEPHIN 1 GM in NS 50 ML IV SCH (14:02)
[2019-07-01] MEDS: ZITHROMAX 500 MG/NS 500 MG/250 ML IVPB IV SCH (14:03)
[2019-07-01] MEDS: NORCO-10 PO PRN (18:41)
[2019-07-01] MEDS ORDERED: LUBRIFRESH PM OPH OINTMENT BOTH EYES PRN (18:57)
[2019-07-01] MEDS ORDERED: SEROQUEL PO SCH (21:00)
--- NOTE | 2019-07-02 00:32 | PROGRESS NOTE ---
DATE: 07/01/2019 SUBJECTIVE: The patient notes he is feeling tremendously better. He is starting to get his strength back. Denies any fevers or chills. States he is still having some coughing and shortness of breath, but much improved. PHYSICAL EXAMINATION: Vital Signs: Temperature 97.6, pulse 67, respiratory 18, BP 124/55. General: Patient is awake, pleasant. Mild distress. HEENT: Normocephalic. Neck: Supple. Cardiovascular: Regular rate. Chest: Clear. Abdomen: Soft. Extremities: Moves all extremities. ASSESSMENT: 1. Chronic obstructive pulmonary disease with exacerbation. 2. Acute viral syndrome. 3. Acute hypoxic respiratory failure. PLAN: Overall, the patient has tremendously improved. His fatigue is improved. Shortness of breath is improved. We are going to wean his Solu-Medrol today to 40 q.8. His COVID testing was negative. If he improves, again we will hopefully discharge him home tomorrow. cc: Thomas Willis MD
[2019-07-02] MEDS: SOLU-MEDROL IV SCH ×2 (03:48→12:28)
[2019-07-02] MEDS: PROTONIX PO SCH (06:20)
[2019-07-02] MEDS: VENTOLIN HFA INH PRN ×3 (08:10→15:04)
[2019-07-02] MEDS: NORCO-10 PO SCH (09:34)
[2019-07-02 12:11] VITALS: BP 110/52
[2019-07-02] MEDS: ROCEPHIN 1 GM in NS 50 ML IV SCH (12:28)
[2019-07-02] MEDS: ZITHROMAX 500 MG/NS 500 MG/250 ML IVPB IV SCH (13:23)
--- NOTE | 2019-07-03 10:22 | DISCHARGE SUMMARY ---
ADMISSION DATE: 06/29/2019 DISCHARGE DATE: 07/02/2019 DISCHARGE DIAGNOSES: 1. Chronic obstructive pulmonary disease with exacerbation improved. 2. Viral syndrome. The patient was tested negative for Coronavirus Disease 2019 (COVID 19). 3. Acute hypoxic and hypercapnic respiratory failure. 4. Chronic pain. CONSULTATIONS: None. PROCEDURES: None. BRIEF HOSPITAL COURSE: The patient is a 74-year-old male who presented to the hospital secondary to fatigue, shortness of breath and cough. 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 He was noted to be in COPD exacerbation. Given the current state, he was tested for COVID-19; thankfully, that was negative. He was placed on Solu-Medrol. He noted he had marked improvement. DISPOSITION: Patient will be discharged home. Will continue Omnicef azithromycin for total treatment course as well as Medrol Dosepak and breathing treatments. He does not need oxygen currently. He states he is feeling much better; therefore, we will discharge him home. TIME SPENT: Greater than 30 minutes was spent in total care. cc: Thomas Willis MD
== END 2019-07-02 15:14 | disposition home or self-care (01) | DRG 190 ==
LOC: P.ED 08:47 → P.MEDSURG 13:24
PROVIDERS: ATTEND Family Medicine